=== PATIENT | male | born 1995 | race Caucasian/White ===

== ENCOUNTER 2018-08-10 13:55 | Emergency (ER) | payer OTHER ==
[2018-08-10] MEDS: MORPHINE 4 MG/ML 1ML VIAL/SYRINGE (J2270) IV ×3 (14:46→17:14)
[2018-08-10] MEDS: NS 1,000 ML IV ×2 (15:45→18:06)
[2018-08-10] MEDS ORDERED: PROPOFOL 200 MG/20 ML VIAL As Ordered (16:24)
[2018-08-10] MEDS: PROPOFOL 200 MG/20 ML VIAL IV (16:45)
[2018-08-10 17:58] LABS: BASO % 0.2 % (0.0-1.0); EOS # 0.1 10^3/uL (0.0-0.50); EOS % 0.3 % (0.0-3.0); HEMATOCRIT 37.4 % (42.0-52.0); HEMOGLOBIN 12.8 g/dl (13.5-17.5); IMMATURE GRANULOCYTE % 0.4 % (0-3.0); LYMPH # 1.4 10^3/uL (1.5-6.5); LYMPH % 7.8 % (24.0-44.0); MEAN CORPUSCULAR HEMOGLOBIN 31.1 pg (27.0-33.0); MEAN CORPUSCULAR HGB CONC 34.2 g/dl (32.0-36.5); MONO # 1.5 10^3/uL (0.0-0.8); MONO % 8.8 % (0.0-5.0); NEUTROPHILS # 14.3 10^3/uL (1.8-7.7); NEUTROPHILS % 82.5 % (36.0-66.0); PLATELET COUNT, AUTOMATED 168 10^3/uL (150-450); RED BLOOD COUNT 4.11 10^6/uL (4.30-6.10); RED CELL DISTRIBUTION WIDTH 12.6 % (11.5-14.5); WHITE BLOOD COUNT 17.4 10^3/uL (4.0-10.0)
[2018-08-10 18:28] LABS: ANION GAP 11 MEQ/L (8-16); BLOOD UREA NITROGEN 16 MG/DL (7-18); CALCIUM LEVEL 8.5 MG/DL (8.5-10.1); CARBON DIOXIDE LEVEL 22 MEQ/L (21-32); CHLORIDE LEVEL 107 MEQ/L (98-107); CREATININE FOR GFR 1.23 MG/DL (0.70-1.30); GLOMERULAR FILTRATION RATE > 60.0 (>60); GLUCOSE, FASTING 100 MG/DL (70-100); POTASSIUM SERUM 3.4 MEQ/L (3.5-5.1); SODIUM LEVEL 140 MEQ/L (136-145)
== END 2018-08-10 18:20 | disposition short-term general hospital (02) ==
LOC: M ED 13:55
DX: S52.122A Displaced fracture of head of left radius, initial encounter for closed fracture (principal); S52.132A Displaced fracture of neck of left radius, initial encounter for closed fracture; S52.045A Nondisplaced fracture of coronoid process of left ulna, initial encounter for closed fracture; W01.0XXA Fall on same level from slipping, tripping and stumbling without subsequent striking against object, initial encounter; Y92.410 Unspecified street and highway as the place of occurrence of the external cause; Y93.02 Activity, running; F32.9 Major depressive disorder, single episode, unspecified; F41.0 Panic disorder [episodic paroxysmal anxiety]; F90.9 Attention-deficit hyperactivity disorder, unspecified type; G47.00 Insomnia, unspecified; Z88.8 Allergy status to other drugs, medicaments and biological substances
CPT/HCPCS: J2270

== ENCOUNTER → 2019-05-23 | Outpatient (CLI) | payer OTHER ==
[~2019-05-23] MED LIST: ALBU17IN2 INH; AMBI10TA PO; Adderall PO; DEPA500T2 PO; KLON1TAB PO; LEXA1TAB PO; PERCOCET PO; PRED-351 PO; ZOFR4TAB16 PO; multivitamin PO; toradol PO
--- NOTE | 2019-05-23 16:21 | REP ---
Digital diagnostic bilateral mammography with CAD, 3-D tomography, and bilateral focused breast sonography. History: Bilateral lumps times 4 years. 23-year-old male patient. No comparison breast imaging. Mammographic Findings: Routine views of each breast are obtained and complemented by 3-D tomography. These demonstrate a gynecomastia pattern in the subareolar zones of both breasts. No spiculation, architectural distortion, mass or microcalcification is appreciated. 3-D tomography shows no additional finding. Sonographic findings: Focused bilateral subareolar sonography demonstrates heterogeneous fibroglandular elements in the subareolar region bilaterally and symmetrically consistent with gynecomastia. Impression: BIRADS category II benign findings. Gynecomastia pattern bilaterally and symmetric. Clinical follow-up is advised. This mammogram was interpreted with the aid of an FDA-approved computer-aided detection system. The patient states she had a clinical breast exam in 3 months ago. The patient letter being requested is m2 (Male patient). Electronically Signed by Robbie Thomas MD 05/23/2019 04:44 P
== END ==
LOC: M RAD 12:04
PROVIDERS: ATTEND Physician Assistant Medical
DX: N62 Hypertrophy of breast (principal)
CPT/HCPCS: 76642; 77066; G0279